=== PATIENT | male | born 2000 | race Caucasian/White ===

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

== ENCOUNTER 2022-02-28 01:34 | Emergency (ER) | payer BC ==
[~2022-02-28] VITALS: Ht 177.8 cm; Wt 77.3 kg
[~2022-02-28 01:34] MED LIST: ZOFRAN ODT4 MG PO
[2022-02-28 01:40] VITALS: TEMP 98
[2022-02-28 02:53] VITALS: BP 129/78; PULSE 80
== END 2022-02-28 03:01 | disposition home or self-care (01) ==
LOC: COL.ER 01:34
DX: R07.89 Other chest pain (principal); F17.290 Nicotine dependence, other tobacco product, uncomplicated; Z20.822 Contact with and (suspected) exposure to COVID-19
CPT/HCPCS: J1885